=== PATIENT | female | born 1955 | race Caucasian/White ===

== ENCOUNTER 2025-05-23 15:57 | Emergency (ER) | payer MEDICARE, OTHER, SELFPAY ==
[2025-05-23 16:12] VITALS: PULSE 97; O2SAT 98; BMI 25.8
[2025-05-23 16:30] VITALS: BP 121/77; PULSE 99; RESP 20; TEMP 36.8; O2SAT 95
[2025-05-23] MEDS: ZIPRASIDONE INJ 20 MG/ML VIAL (NON-FORMULARY) IM (16:40)
--- NOTE | 2025-05-23 16:43 | PD.EDPSYCH ---
ED Psych RME/HPI General Chief Complaint: Psychiatric Symptoms Stated Complaint: MENTAL EVALUATION Time Seen by Provider: 05/23/25 16:04 Arrival date/time: 05/23/25 15:57 RME / HPI RME / HPI Narrative: SEE MDM Related Data Home Medications ?Medication ?Instructions ?Recorded ?Confirmed loratadine 10 mg tablet 10 mg PO QDAY 07/17/17 07/17/17 Previous Rx's ?Medication ?Instructions ?Recorded hydroxyzine HCl 25 mg tablet 25 mg PO Q6H PRN anxiety #30 tabs 02/17/18 ibuprofen 600 mg tablet 600 mg PO TID #30 tabs 02/17/18 Allergies Allergy/AdvReac Type Severity Reaction Status Date / Time morphine Allergy Severe Confusion Verified 07/17/17 10:41 Review of Systems Review of Systems ROS Unobtainable: unobtainable due to mental status Past Medical History Past Medical History CARDIAC: Positive Hypotension MUSCULOSKELETAL: Positive Musculoskeletal Disorders PSYCHO/SOCIAL: Positive Anxiety Social History SMOKING STATUS: Light (< 1 pack/day) ED Exam Narrative Physical exam: SEE MDM Course Quality Measures none Orders Category Date Time Status 2 HR Behavioral Restraints Q15M Care 05/24/25 04:50 Completed One-to-one observation NOW Care 05/24/25 06:25 Active Diet Regular Diet 05/23/25 Dinner Active Acetaminophen Stat Lab 05/23/25 17:25 Completed Alcohol, Blood Medical Stat Lab 05/23/25 17:25 Completed CBC Stat Lab 05/23/25 17:25 Completed CMP [Comprehensive Metabolic Panel] Stat Lab 05/23/25 17:25 Completed Drug Screen,Urine Stat Lab 05/23/25 22:47 Completed Salicylate Stat Lab 05/23/25 17:25 Completed Diazepam Inj [Valium Inj] Med 05/24/25 03:57 Discontinued 5 mg IM X1 ONE Haloperidol Lactate [Haldol Inj] Med 05/24/25 03:55 Discontinued 10 mg IM X1 ONE OLANZapine INJ [Zyprexa Inj] 10 mg Med 05/24/25 04:32 Discontinued Sterile Water 2.1 ml IM QDAY Ziprasidone Inj [Geodon Inj] Med 05/24/25 04:30 Discontinued 10 mg IM X1 ONE Ziprasidone Inj [Geodon Inj] Med 05/23/25 16:15 Discontinued 20 mg IM X1 ONE Ziprasidone Inj [Geodon Inj] Med 05/24/25 04:30 Discontinued 20 mg IM X1 ONE Ziprasidone Inj [Geodon Inj] Med 05/24/25 04:30 Discontinued 20 mg IM X1 ONE Vital Signs Vital signs: Vital Signs Temperature 98.3 F 05/23/25 16:30 Pulse Rate 99 05/23/25 16:30 Respiratory Rate 20 05/23/25 16:30 Blood Pressure 121/77 05/23/25 16:30 Pulse Oximetry (%) 95 05/23/25 16:30 Oxygen Delivery Method Room Air 05/23/25 16:30 Psych MDM Narrative MDM Narrative:: This section includes all my notes and documentations, including HPI, PE, and ED course. Dedrick Sheehan MD ? HPI: 69 year old female with history of schizoaffective disorder, bipolar type presents to the ED [facility] from [facility] on a 5150 hold for gravely disabled and danger to others. Per the 5150 report, written by Dr. Kofi Quinteros, the patient was rambling, irritable, and agitated. Per report, the patient was making threats to hurt the deputies and evidently threw a shoe at one of the deputies. Patient also was unable to safety plan with them. Per medics report, the patient has not made any sensical sentences. In the ED, patient reports I'm feeling good theres nothing wrong with me . Also states she has been out of her Invega x 2 weeks. The patient is unable to provide any additional history. She has flight of ideas, word salad, with tangible thoughts. ROS: All negative except as documented in HPI. ? PE: GENERAL APPEARANCE:? Awake, alert, flight of ideas, word salad, with tangible thoughts, unable to make herself understood, agitated HEENT: normocephalic, atraumatic NECK: supple LUNGS: no respiratory distress, normal effort HEART: good peripheral perfusion ABDOMEN: non distended EXTREMITIES:? atraumatic NEUROLOGIC: awake; alert PSYCHIATRIC:?flight of ideas, word salad, with tangible thoughts, unable to make herself understood, agitated SKIN: warm, dry, normal color; no rashes I reviewed EMS notes. ? I reviewed all diagnostic test results: Blood tests and urine tests ordered and are pending. At this point, diagnoses include: Acute psychosis Treatment here included: Macariodon 1610: Patient is agitated with flight of ideas, tangible thoughts and unable to make herself understood. I spoke with pharmacy who will order IM Geodon. 1800: Care signed out to Dr. Reyes, labs and medical clearance for mental health evaluation. Patient data External records reviewed:: [facility] previous records and EMS form Clinical information provided by:: patient and EMS Social determinants that could affect healthcare access:: mental health Patient has the following chronic illnesses:: as noted above How is presenting disease/condition affected by chronic disease/condition?: exacerbated by Evaluation data The following diagnostics were reviewed and interpreted by me:: other (specify) (pending during sign out ) Lab and/or radiology exams considered but not ordered:: None Interpretation Summary: N/A Medications / Prescriptions Medications or Prescriptions considered but not ordered:: None Medication administrations:: Medication Administration History Discontinued Medications Olanzapine 10 mg/ Sterile (Water 2.1 ml) 0 mg IM QDAY ROSIE Stop: 06/23/25 04:31 Last Admin: 05/24/25 04:39 Dose: 10 dose Documented By: GALILEA Diazepam (Diazepam Inj 5 Mg/Ml Vial 2 Ml) 5 mg IM X1 ONE Stop: 05/24/25 03:58 Last Admin: 05/24/25 04:39 Dose: 5 mg Documented By: GALILEA Haloperidol Lactate (Haloperidol Lact Inj 5 Mg/Ml Vial) 10 mg IM X1 ONE Stop: 05/24/25 03:56 Last Admin: 05/24/25 04:20 Dose: Not Given Documented By: VIBHAL Non-Admin Reason: Cancelled by Provider Ziprasidone (Ziprasidone Inj 20 Mg/Ml Vial (Non-Formulary)) 20 mg IM X1 ONE Stop: 05/23/25 16:16 Last Admin: 05/23/25 16:40 Dose: 20 mg Documented By: DELGADO Ziprasidone (Ziprasidone Inj 20 Mg/Ml Vial (Non-Formulary)) 10 mg IM X1 ONE Stop: 05/24/25 04:31 Ziprasidone (Ziprasidone Inj 20 Mg/Ml Vial (Non-Formulary)) 20 mg IM X1 ONE Stop: 05/24/25 04:31 Ziprasidone (Ziprasidone Inj 20 Mg/Ml Vial (Non-Formulary)) 20 mg IM X1 ONE Stop: 05/24/25 04:31 Last Admin: 12/27/25 04:33 Dose: Not Given Documented By: WO Non-Admin Reason: Medication Not Available See above Consultations Consultation(s) initiated? (list below): No Diagnosis Psych Differential Diagnosis: acute psychosis, chronic schizophrenia, bipolar disorder, depression, drug-induced psychotic disorder and acute anxiety Most likely diagnosis given after review of the tests above:: Acute psychosis Admission Indicated Admission indicated?: not indicated Explain why admission is indicated or not indicated:: Signed out pending medical clearance for mental health evaluation. Admission Request Was there a request for admission?: No Disposition Plan Disposition Plan: other (specify) (Care signed out to Dr. Reyes ) Discharge Plan Prescriptions/Referrals Prescriptions/Med Rec: No Action loratadine 10 mg tablet 10 mg PO QDAY Patient Comments: take 1 tablet by mouth once daily hydroxyzine HCl 25 mg tablet 25 mg PO Q6H PRN (Reason: anxiety) Qty: 30 0RF ibuprofen 600 mg tablet 600 mg PO TID Qty: 30 0RF Referrals: No Primary/Family,Physician [Primary Care Provider] - In 1 week Problem List Clinical Impression: Methamphetamine abuse, Acute psychosis, Cannabis abuse Patient/Caregiver Discharge Instructions Print Language: Czech
[2025-05-23 17:39] LABS: Basophils # (Auto) 0.0 Thou/mm3 (0.0-0.2); Basophils % (Auto) 1 % (0-2.5); Eosinophils # (Auto) 0.2 Thou/mm3 (0.0-0.5); Eosinophils % (Auto) 5 % (0-10); Hematocrit 36.4 % (36.0-46.0); Hemoglobin 11.9 g/dL (12.0-16.0); Immature Granulocytes Auto 0.01 Thou/mm3 (0.00-0.00); Lymphocytes # (Auto) 1.3 Thou/mm3 (1.0-4.8); Lymphocytes % (Auto) 35 % (10-50); Mean Corpuscular HGB Conc 32.7 g/dl (31.0-37.0); Mean Corpuscular Hemoglobin 27.3 pg (25.0-35.0); Mean Corpuscular Volume 84 fL (80-100); Monocytes # (Auto) 0.4 Thou/mm3 (0.0-0.8); Monocytes % (Auto) 10 % (0-12); Neutrophils # (Auto) 1.9 Thou/mm3 (1.8-7.7); Neutrophils % (Auto) 49 % (37-80); Nucleated Red Blood Cell # 0.00 Thou/mm3 (0.00-0.00); Nucleated Red Blood Cell % 0 /100 WBC (0); Platelet Count 246 Thou/mm3 (140-440); RDW Standard Deviation 41.8 fL (36.4-46.3); Red Blood Count 4.36 Miln/mm3 (4.00-5.20); White Blood Count 3.8 Thou/mm3 (3.6-11.0)
[2025-05-23 17:59] LABS: Acetaminophen < 2.0 mcg/mL (10.0-20.0); Alanine Aminotransferase 41 U/L (10-49); Albumin, Serum 3.7 gm/dL (3.4-4.8); Albumin/Globulin Ratio 1.2 (1.2-2.2); Alcohol, Blood Medical < 3.0 mg/dL (0-10.0); Alkaline Phosphatase 71 U/L (46-116); Anion Gap 13 (7-16); Aspartate Amino Transferase 46 U/L (0-34); BUN/Creatinine Ratio 36 Ratio (12-20); Bilirubin,Total 0.4 mg/dL (0.3-1.2); Blood Urea Nitrogen 25 mg/dL (9-23); Calcium 8.3 mg/dL (8.3-10.6); Calcium (Corrected) 8.5 mg/dL (8.5-10.1); Carbon Dioxide 23.4 mMol/L (20.0-31.0); Chloride 106 mMol/L (98-107); Creatinine (Component) 0.7 mg/dL (0.6-1.3); Estimated Creatinine Clearance 60.5 mL/min (>60); Globulin 3.2 gm/dL (2.3-3.5); Glucose 136 mg/dL (74-106); Osmolality,Calculated 289 (275-295); Potassium 3.4 mMol/L (3.4-5.1); Salicylate < 3.0 mg/dL; Sodium 142 mMol/L (136-145); Total Protein 6.9 gm/dL (5.7-8.2); eGFR > 60 See Note
--- NOTE | 2025-05-23 18:54 | EDNOTE_ITS ---
Emergency Room Addendum Addendum Narrative: 1800: Care assumed from Dr. Sheehan, the previous shift emergency physician. Past medical, surgical, social and family history reviewed. Vitals and home medications reviewed. Results and treatment plan discussed. I will assume the care of the patient at this time and will follow the patient. Please refer to the emergency department record for history and examination from initial visit. Patient was placed in observation for treatment and monitoring of psychiatric s ymptoms, at 1800 05/23/2025. Symptoms consist of danger to others. Treatment plan includes psychiatric consult, reassessments, and possible placement into psychiatric facility. The patient had access and provided personal hygiene, shower, food, water, and daily medications. Patient remained stable while under my care and is medically clear for psychiatric evaluation. Patient became agitated and aggressive towards staff. Zyprexa 10mg IM and Valium 5mg IM ordered. 0600: Care signed out to Dr. Sheehan (emergency physician). Past medical, surgical, social and family history reviewed. Vitals and home medications reviewed. Results and treatment plan discussed. They will assume the care of the patient at this time and will follow the patient, pending crisis evaluation. At this time, observation has ended.
[2025-05-23 23:18] LABS: Amphetamine/Methamp Scrn,U Positive (Negative); Barbiturate Screen,Urine Negative (Negative); Benzodiazepines Screen,Urine Negative (Negative); Benzoylecgonine Screen, Ur Negative (Negative); Fentanyl Screen,Urine Negative (Negative); Opiate Screen,Urine Negative (Negative); THC Screen,Urine Positive (Negative)
[2025-05-24 03:46] VITALS: BP 99/61; PULSE 72; RESP 16; TEMP 36.8; O2SAT 95
[2025-05-24] MEDS: DIAZEPAM INJ 5 MG/ML VIAL 2 ML IM ×2 (04:39→11:20)
[2025-05-24] MEDS: OLANZapine INJ 10 MG, Sterile Water 2.1 ML IM (04:39)
--- NOTE | 2025-05-24 04:50 | PC.NURSE ---
Patient observed to be highly agitated, verbally aggressive, and directing profane language toward the assigned 1:1 staff. Patient made repeated verbal threats to kill staff and attempted to cause physical harm by swinging fists toward staff on multiple occasions. Due to escalating behavior, a Code Chambers was initiated. Security and this keno writer attempted therapeutic communication and de-escalation techniques without success. Patient continued to display an agitated and threatening demeanor as evidenced by ongoing homicidal threats toward staff, tense muscle tone, clenched fists, and an observed fighting stance. 2hr behavior bilateral soft wrist restrains initiated at this time to maintain safety a security of staff and patients, exit criteria explained. 1:1 observation continues.
[2025-05-24 07:36] VITALS: BP 110/67; PULSE 55; RESP 19; TEMP 36.7; O2SAT 97
--- NOTE | 2025-05-24 09:40 | PC.CC ---
Addendum entered by MCKENZIE Rodriguez 05/24/25 12:42: Patient was accepted to [facility]. ASW scheduled transportation ETA is 14:00, ASW notified bedside nurse and left packet with bedside nurse. Addendum entered by MCKENZIE Rodriguez 05/24/25 11:30: ASW placed phone call to [facility], admissions stated there are not beds available. Addendum entered by MCKENZIE Rodriguez 05/24/25 10:11: ASW submitted LPS referral via [facility] pending responses, ASW included call back number with ASW number and ED nurse station number. Original Note: This is a 69 year old female who presented to the ED on 05/23/25 on a 5150 hold for danger to others and gravely disabled by [facility] facility. Patient was placed on hold due to agitated behavior and making threats to hurt deputies. ASWLisandro met with patient [id number] to complete assessment. ASW introduced self, role, and reason for assessment. ASW disclosed limits of confidentiality as well. Patient appeared alert and oriented to self, place, and situation. Patient was irritated with social media manager and stated she wanted to go home. Patient?s appearance was disheveled and not groomed. ?Patient stated she is aware she was placed on a hold. And stated her current address is [address], [place] in [place] and lives with her brother. Patient denied amphetamine use but stated she uses THC and alcohol. Patient denies hallucination and SI. ASW inquired if patient has any any previous SI or hospitalization, patient replied no and stated that ASW is asking ?stupid? questions and began to ramble nonsensically. ?When ASW inquired if patient has thoughts of hurting others patient became agitated and stated that ASW needs to ?Stop asking stupid questions? and to ?shut up.? Patient stated she does not have any mental health disorder, ASW asked if patient if she takes any medications for mental health disorders, Patient became angry and stated that ASW can only ask questions once and stated ? if you ask me twice I?m going to get angry.? ?Patient?s toxicology indicated positive amphetamine and THC. Patient scored low risk on [place] screening. Per chart, patient is bipolar and schizoaffective disorder. ASW inquired if patient is eating well and has stable housing. Patient stated ?That?s none of your business.? ASW asked patient if ASW can make collateral calls to family, patient stated no. Patient reported that she is getting angry with questions. ASW attempted to ask further questions but patient was rambling, irritable and agitated. Patient started to curse at ASW and mumble nonsensically. Patient refused to answer any further questions. After clinical conservation with supervising AIRCRAFT STEEL FABRICATOR-Camryn Mcneil; 5150 hold-Danger to others and gravely disabled will be upheld due to patient?s inability to safety plan. ASW notified patient that 5150 will be uphold. Patient became angry and started to yell curse and ramble.
--- NOTE | 2025-05-24 09:58 | PC.SS ---
This is a 69 year old female who presented to the ED on 05/23/25 on a 5150 hold for danger to others and gravely disabled by [facility]. Patient was placed on hold due to agitated behavior and making threats to hurt deputies. ASW-Lenoie met with patient [id number] to complete assessment. ASW introduced self, role, and reason for assessment. ASW disclosed limits of confidentiality as well. Patient appeared alert and oriented to self, place, and situation. Patient was irritated with social science research assistant and stated she wanted to go home. Patient?s appearance was disheveled and not groomed. ?Patient stated she is aware she was placed on a hold. And stated her current address is [address] [place] and lives with her brother. Patient denied amphetamine use but stated she uses THC and alcohol. Patient denies hallucination and SI. ASW inquired if patient has any any previous SI or hospitalization, patient replied no and stated that ASW is asking ?stupid? questions and began to ramble nonsensically. ?When ASW inquired if patient has thoughts of hurting others patient became agitated and stated that ASW needs to ?Stop asking stupid questions? and to ?shut up.? Patient stated she does not have any mental health disorder, ASW asked if patient if she takes any medications for mental health disorders, Patient became angry and stated that ASW can only ask questions once and stated ? if you ask me twice I?m going to get angry.? ?Patient?s toxicology indicated positive amphetamine and THC. Patient scored low risk on [place] screening. Per chart, patient is bipolar and schizoaffective disorder. ASW inquired if patient is eating well and has stable housing. Patient stated ?That?s none of your business.? ASW asked patient if ASW can make collateral calls to family, patient stated no. Patient reported that she is getting angry with questions. ASW attempted to ask further questions but patient was rambling, irritable and agitated. Patient started to curse at ASW and mumble nonsensically. Patient refused to answer any further questions. After clinical conservation with supervising MANAGER MEDICA[employer]-Camryn Mcneil; 5150 hold-Danger to others and gravely disabled will be upheld due to patient?s inability to safety plan
--- NOTE | 2025-05-24 10:02 | PD.EDADDENDU ---
Emergency Room Addendum Addendum Narrative: 0600: Care assumed from Dr. Reyes, the previous shift emergency physician. Past medical, surgical, social and family history reviewed. Vitals and home medications reviewed. I will assume the care of the patient at this time, pending crisis evaluation. Please refer to the emergency department record for history and examination from initial visit.? The patient was placed in ED observation care at 05/24/2025 at 0600 hours. The patient was placed in ED observation care pending mental health evaluation. Then, [facility] placed her on 5150 hold and now on observation care because of undifferentiated decompensated behavioral health evaluation, no behavioral health bed available. The patients past medical history, social history, and family history were reviewed. The plan of care will include serial examinations. While in ED observation the patient will have access to water, food, and personal hygiene. If the patient takes home medication(s), they will be continued in ED observation. Physical exam by me shows patient under no acute distress at this time. 0935: [facility] will upheld the 5150 hold due to inability to obtain safety plan. 1200: Patient has been accepted to [facility]. ETA is 1400 hours. 1400: EMS here to pick the patient and transport to [facility]. ED observation care ended at 05/24/2025 at 1400 hours.
[2025-05-24 10:15] VITALS: BP 114/78; PULSE 67; RESP 18; TEMP 36.8; O2SAT 98
--- NOTE | 2025-05-24 10:54 | PC.NURSE ---
[facility] called and rejected patient due to full capacity but encouraged to resubmit paperwork in 2 days if patient still needs placement
[2025-05-24] MEDS: HALOPERIDOL LACT INJ 5 MG/ML VIAL IM (11:19)
--- NOTE | 2025-05-24 11:27 | PC.NURSE ---
Pt had an episode of maniac episode and started banging head MD at bedside and meds given
--- NOTE | 2025-05-24 13:14 | PC.NURSE ---
Report was called to [facility] report given to Rosina ROCHA all questions and concerns addressed
== END 2025-05-24 12:55 ==
PROVIDERS: Emergency Provider Emergency Medicine
DX: F23 Brief psychotic disorder (principal); F25.0 Schizoaffective disorder, bipolar type; F15.10 Other stimulant abuse, uncomplicated; F12.10 Cannabis abuse, uncomplicated
CPT/HCPCS: 36415; 80053; 80307; 80320; 80329; 85025; 96127; 96372; 99284; A4216; J1630; J2358; J3360; J3486; G0480; J2359